=== PATIENT | male | born 1995 | race Caucasian/White ===

== ENCOUNTER 2018-02-16 21:48 | Emergency (ER) | payer OTHER ==
[~2018-02-16] VITALS: Ht 185.4 cm; Wt 68.7 kg
[2018-02-16 22:22] LABS: CULTURE INDICATED? NO; MICROSCOPIC NOT IND
[2018-02-16 23:54] VITALS: BP 118/77
== END 2018-02-17 01:07 | disposition home or self-care (01) ==
LOC: ED 23:59
DX: K59.00 Constipation, unspecified (principal); K62.89 Other specified diseases of anus and rectum; F17.200 Nicotine dependence, unspecified, uncomplicated; Z88.5 Allergy status to narcotic agent
CPT/HCPCS: 74021; 81003; 99285

== ENCOUNTER 2019-11-07 21:18 | Emergency (ER) | payer SELFPAY ==
[~2019-11-07] VITALS: Ht 185.4 cm; Wt 74.9 kg
[2019-11-07 21:21] VITALS: BP 121/73
[2019-11-07] MEDS ORDERED: DIPH,PERTUSS(ACELL),TET VAC/PF 0.5 ML IM-VACC ONE ×2 (21:27→21:30)
== END 2019-11-07 21:46 | disposition home or self-care (01) ==
LOC: ED 21:30
DX: S61.001A Unspecified open wound of right thumb without damage to nail, initial encounter (principal); X58.XXXA Exposure to other specified factors, initial encounter; Y93.89 Activity, other specified; Y92.009 Unspecified place in unspecified non-institutional (private) residence as the place of occurrence of the external cause; Y99.8 Other external cause status
CPT/HCPCS: 90471; 90715; 99283